=== PATIENT | male | born 1955 ===

== ENCOUNTER 2023-09-30 18:12 | Outpatient (CLI) | payer OTHER, SELFPAY ==
[2023-09-30 15:50] LABS: BUN 15 mg/dL (7-18); CREATININE 1.4 mg/dL (0.70-1.30); Chloride 107 mmol/L (98-107); Estimated GFR 54.41 (mL/min/1.73m2); Glucose 91 mg/dL (74-106); Potassium 3.9 mmol/L (3.5-5.1); Sodium 141 mmol/L (136-145)
== END 2023-09-30 18:13 | disposition home or self-care (01) ==
LOC: LBO 18:12
PROVIDERS: Visit Provider Family Medicine
DX: I10 Essential (primary) hypertension (principal)
CPT/HCPCS: 36415; 80048